=== PATIENT | female | born 1965 | race Caucasian/White ===

== ENCOUNTER 2017-03-01 20:25 | Emergency (ER) | payer OTHER ==
[~2017-03-01] VITALS: Ht 165.1 cm; Wt 59.0 kg
[~2017-03-01 20:25] MED LIST: AMBIEN (MONOGRAP5 MG PO; ATIVAN 2 MG. TAB2 MG PO; ATIVAN0.5 MG PO; ATIVAN1 MG PO; AUGMENTIN 875 M1 TAB PO; BENZONATATE200 MG PO; CLEOCIN HCL300 MG PO; CLONIDINE0.1 MG PO; HYDROXYZINE50 MG PO; MOTRIN800 MG PO; NOVAPLUS V0.09 MG/Ac INH; PERCOCET 325 MG1 TA2 PO; VICODIN5-300 PO; ZITHROMAX Z-PA250 M1 PO
--- NOTE | 2017-03-01 22:25 | ED ANIMAL BITE/WOUND CHECK ---
History of Present Illness General Chief Complaint: Animal/Insect Bite Stated Complaint: PT WAS ATTACK BY A DOG Source: patient, old records Exam Limitations: no limitations Vital Signs & Intake/Output Vital Signs & Intake/Output Vital Signs Date Time Temp Pulse Resp B/P B/P Pulse O2 O2 Flow FiO2 Mean Ox Delivery Rate 03/013 97.1 86 138/88 98 03/01 2057 97.8 90 20 128/84 98 Room Air ED Intake and Output 03/02 0000 03/01 1200 Intake Total 0 Output Total Balance 0 Intake, Oral 0 Patient 130 lb Weight Weight Reported by Patient Measurement Method Allergies Coded Allergies: No Known Allergies (03/01/17) Reconcile Medications Albuterol Sulfate (Ventolin Hfa) 0.09 MG/Actuation ARETHA 1-2 PUFF INH Q6P PRN sob Amoxicillin/Potassium Clav (Augmentin 875-125 Tablet) 875 MG-125 MG TABLET 1 TAB PO BID dog bite Azithromycin (Zithromax Z-Christian) 250 MG CAP 1 DP PO AD bronchitis 2 the first day followed by 1 for days 2-5 Benzonatate 200 MG SGL 1 CAP PO TID cough CLONIDINE HCL (Clonidine) 0.1 MG TAB 1 TAB PO TID ANXIETY Hydroxyzine Hydrochloride (Hydroxyzine) 50 MG TAB 1-2 TAB PO QHS PRN INSOMNIA Hydroxyzine Hydrochloride (Hydroxyzine) 50 MG TAB 1-2 TAB PO QHS INSOMNIA/ ANXIETY Ibuprofen 800 MG TABLET 1 TAB PO TID PRN pain Lorazepam (Ativan 2 Mg. Tablet) 2 MG TAB 1 TAB PO QHS PRN SLEEP Lorazepam (Ativan) 1 MG TAB 1 TAB PO QHS PRN ANXIETY Lorazepam (Ativan) 0.5 MG TAB 1 TAB PO QHS PRN ANXIETY Zolpidem Tartrate (Ambien) 5 MG TAB 1 TAB PO QHS PRN SLEEP Triage Note: TRIAGE: PT TO ER C/C PUNCTURE WOUND TO R FOOT AND R MIDDLE FINGER S/P ATTACK BY DOG. STATES SHE WAS WALKING HER DOG AND A LOOSE PIT BULL ATTACKED BOTH HER AND HER DOG. UNSURE IF DOG IS UP TO DATE ON SHOTS. Triage Nurses Notes Reviewed? yes Onset: Abrupt Duration: hour(s): (1), constant Timing: single episode today Injury Environment: street Is Injury an Animal Bite? Yes Animal Type: dog Context of Animal Attack: unprovoked attack Appearance of Animal: unknown Animal Immunization Status: unknown Observation/Capture: Animal Control notified Severity of Attack: bitten Severity: mild, moderate Severity Numbers: 4 No Modifying Factors: none Associated Symptoms: denies HPI: 51 yo female presents to the er for eval s/p sustaining dog bit to her right hand and r foot. she was walking her dog when a neighbors dog came out and attacked her and her dog. she is utd on her tetanus. c/o mild aching pain 4/10, nonradiating. no modifying factors. she states the dogs vaccines are unknown howeverwill contact the neighbor chris. no other inj, pt decling anythign for pain when offered. (KAROLYN HUGHES) Past History Travel History Traveled to [place] past 21 day No Medical History Any Pertinent Medical History? see below for history Neurological: NONE EENT: NONE Cardiovascular: NONE Respiratory: bronchitis Gastrointestinal: NONE Hepatic: NONE Renal: NONE Musculoskeletal: NONE Psychiatric: anxiety, depression Endocrine: NONE Blood Disorders: NONE Cancer(s): NONE RESTAURANT MAINTENANCE TECHNICIAN/Reproductive: NONE Tetanus Vaccine: 05/31/14 Surgical History Surgical History: non-contributory Psychosocial History What is your primary language [place] Tobacco Use: Current Daily Use Daily Tobacco Use Amount/Type: => 5 Cigarettes daily ETOH Use: occasional use Illicit Drug Use: marijuana Family History Hx Contributory? No (KAROLYN HUGHES) Review of Systems Review of Systems Constitutional: Reports: see HPI. All Other Systems: Reviewed and Negative Comments Review of systems: See HPI, All other systems negative. Constitutional, no chills no fever, no malaise HEENT: No visual changes no sore throat no congestion Cardiovascular: No chest pain , no palpitation Skin: no rashes, no change in skin Respiratory: No dyspnea no cough no sputum GI: No nausea no vomiting, Muscle skeletal: No joint pain, no back pain, no neck pain, Neurologic: no headache Psych: No stress Heme/endocrine: No bruising Immunology: No lymphadenopathy (KAROLYN HUGHES) Physical Exam Physical Exam General Appearance: well developed/nourished Comments: Well-developed well-nourished patient in no apparent distress. HEENT: Atraumatic, extraocular motion intact Neck: Supple, FROM Back: FROM Cardiovascular: Regular rate and rhythms no murmurs rubs or gallops, Respiratory: Chest nontender.There were no bony deformities, no asymmetry. No respiratory distress. Patient speaking in full complete sentences. Breath sounds clear to auscultation bilaterally: NO W/R/R Shoulder: Atraumatic/Stable. FROM . Elbow: Atraumatic/stable. FROM. No laxity Upper arm/Forearm: Atraumatic. Nontender. No edema, 5 out of 5 clinical data abstractor strength noted to bilateral upper extremities Hand/Wrist: superfical abrasion noted to the medial dorsal r hand, no laceration, no visaulied or palpated fb, FROM, nontender Pulses: Normal/equal radial pulses bilaterally. Brisk cap refill Hip/Pelvis: Atraumatic/Stable. FROM. Knee: Atraumatic/stable. FROM. Leg: Atraumatic. Nontender. No edema, 5 out of 5 strength in the lower extremity, normal dorsiflexion of great toe bilaterally, gross sensation is intact Ankle/Foot: V shaped flap avulsion inj noted teral dorsal r foot, rest of foot is atraumatic, nontender,to the laFROM. No swelling, no effusion. No laxity on exam Pulses: Normal/equal DP/PT pulses bilaterally. Brisk cap refill Neuro: awake, alert, and oriented to person, place and time. There were no obvious focal neurologic abnormalities. Skin: Warm & dry;No appreciable rash on exposed skin Psych: Mood affect normal, normal memory normal judgment. (KAROLYN HUGHES) Progress Differential Diagnosis: abscess, cellulitis, joint infection, tenosysnovitis Plan of Care: wounds throughouly irriaged with ns, betadine, peroxide, betadine and sterile dressing applied.I had an extensive conversation regarding need for close follow up with their primary care physician this week as well as return precautions. I answered all of their questions, they feel comfortable with the plan and follow- up care. I discussed with the patient/family the medications that they will receive. I gave them signs and symptoms that could indicate an adverse reaction. I have advised them to limit their activities until they can see how they respond to the medication. (KAROLYN HUGHES) Departure Departure Time of Disposition: 2239 Disposition: HOME OR SELF CARE Condition: Stable Clinical Impression Primary Impression: Dog bite Secondary Impressions: Skin abrasion Referrals: PATIENT HAS NO PRIMARY CARE DR (PCP/Family) Additional Instructions: augmentin as directed, ibuprofen for pain and these were sent your pharmacy. As discussed keep wounds clean and covered. Return to ER with any concerns or signs of infection: Redness warmth swelling discharge fever or chills Departure Forms: Customer Survey General Discharge Information Prescriptions: Current Visit Scripts Amoxicillin/Potassium Clav (Augmentin 875-125 Tablet) 1 TAB PO BID #20 TAB Ibuprofen 1 TAB PO TID PRN pain #30 TAB (KAROLYN HUGHES) PA/PATIENT ACCESS SPECIALIST Co-Sign Statement Statement: ED Attending supervision documentation- I saw and evaluated the patient. I have also reviewed all the pertinent lab results and diagnostic results. I agree with the findings and the plan of care as documented in the PA's/PATIENT ACCESS SPECIALIST's documentation. x I have reviewed the ED Record and agree with the PA's/PATIENT ACCESS SPECIALIST's documentation. [] Additions or exceptions (if any) to the PAs/PATIENT ACCESS SPECIALIST's note and plan are summarized below: [] (CALOS RICHARDSON,SAMANTHA)
[2017-03-01] MEDS ORDERED: AUGMENTIN 875-1 EACH PO (22:42)
[2017-03-01] MEDS ORDERED: IBUPROFEN800 M1 PO (22:42)
[2017-03-01 22:53] VITALS: BP 138/88
== END 2017-03-01 22:56 ==
LOC: ERH 20:25
DX: S60.511A Abrasion of right hand, initial encounter (principal); W54.0XXA Bitten by dog, initial encounter; Y93.9 Activity, unspecified; Y92.410 Unspecified street and highway as the place of occurrence of the external cause